=== PATIENT | female | born 1970 | race Caucasian/White ===

== ENCOUNTER 2021-05-09 18:08 | Emergency (ER) | payer OTHER ==
[~2021-05-09 18:08] MED LIST: ACETAMINOPHEN500 M1 PO; BIRTH CONTROL PO; COLACE100 MG PO; LINZESS72 MCG PO; METFORMIN HCL500 MG PO; MOTRIN600 MG PO; OXY-IR 5MG5 MG PO
[2021-05-09] MEDS ORDERED: IBUPROFEN800 MG PO (20:06)
[2021-05-09] MEDS ORDERED: ROBAXIN750 MG PO (20:06)
== END 2021-05-09 20:18 | disposition home or self-care (01) ==
LOC: FER 18:08
DX: S39.012A Strain of muscle, fascia and tendon of lower back, initial encounter (principal); X50.9XXA Other and unspecified overexertion or strenuous movements or postures, initial encounter; Y92.89 Other specified places as the place of occurrence of the external cause; Y99.0 Civilian activity done for income or pay
CPT/HCPCS: 72110